=== PATIENT | male | born 1945 | race Caucasian/White ===

== ENCOUNTER → 2022-05-30 14:40 | Outpatient (CLI) | payer MEDICARE, OTHER, SELFPAY ==
[2022-06-01 17:02] LABS: Fecal Immunochemical Test Negative (Negative)
== END ==
PROVIDERS: PCP Family Medicine; Referring Provider Family Medicine; Visit Provider Family Medicine
DX: Z12.11 Encounter for screening for malignant neoplasm of colon (principal)
CPT/HCPCS: 82274

== ENCOUNTER → 2022-10-25 08:46 | Outpatient (CLI) | payer MEDICARE, OTHER, SELFPAY ==
[2022-10-25 09:49] LABS: Alanine Aminotransferase 26 IU/L (<50); Albumin 4.2 g/dL (3.5-5.0); Albumin Globulin Ratio 1.4 (1.0-2.8); Alkaline Phosphatase 63 U/L (38-126); Aspartate Aminotransferase 39 IU/L (17-59); BUN Creatinine Ratio 17.9 (6-22); Bilirubin Total 0.5 mg/dL (0.2-1.3); Blood Urea Nitrogen 15 mg/dL (9-20); Calcium 9.5 mg/dL (8.4-10.2); Carbon Dioxide 33 mmol/L (22-32); Chloride 101 mmol/L (98-107); Cholesterol 202 mg/dL (140-199); Estimated Glomerular Filt Rate > 60 mL/min (>60); Glucose 112 mg/dL (80-110); HDL Cholesterol 63 mg/dL (40-60); HEMOLYSIS < 15 (0-50); LDL Cholesterol Calculated 121 mg/dL (<100); Potassium 4.9 mmol/L (3.4-5.1); Sodium 137 mmol/L (137-145); Total Protein 7.2 g/dL (6.3-8.2); Triglycerides 90 mg/dL (35-150)
[2022-10-25 10:22] LABS: TSH w/ Reflex to FT4 3.78 uIU/mL (0.47-4.68)
== END ==
PROVIDERS: PCP Family Medicine; Referring Provider Family Medicine; Visit Provider Family Medicine
DX: E03.9 Hypothyroidism, unspecified (principal); G47.00 Insomnia, unspecified; Z00.00 Encounter for general adult medical examination without abnormal findings
CPT/HCPCS: 36415; 80053; 80061; 84443

== ENCOUNTER 2023-01-05 19:44 | Emergency (ER) | payer MEDICARE, OTHER, SELFPAY ==
[2023-01-05 19:48] VITALS: BP 156/67; PULSE 51; RESP 18; TEMP 36.5; O2SAT 100; BMI 21.4
--- NOTE | 2023-01-05 19:53 | DI.RAD.S_ITS ---
PROCEDURE: XR KNEE RT 3V INDICATIONS: injury TECHNIQUE: 3 views of the knee were acquired. COMPARISON: None. FINDINGS: Bones: Mildly displaced, comminuted fracture line the proximal fibular shaft. Three-vessel coronary calcifications. Tricompartmental joint space narrowing with osteophytosis. Soft tissues: Moderate joint effusion. No suspicious soft tissue calcifications. Chondrocalcinosis. IMPRESSION: Mildly displaced fracture of the proximal fibula shaft. Moderate knee joint effusion. Chondrocalcinosis, which can be seen in the setting of CPPD, aging, and parathyroid disorders. Dictated by: Aris Sanderson M.D. on 01/05/2023 at 21:48 Approved by: Aris Sanderson M.D. on 01/05/2023 at 21:49
--- NOTE | 2023-01-05 23:17 | DI.RAD.S_ITS ---
PROCEDURE: XR TIBIA FUBULA RT 2V INDICATIONS: fibular fx on knee xray TECHNIQUE: 2 views of the tibia and fibula were acquired. COMPARISON: None. FINDINGS: Bones: Minimally displaced fracture of the proximal fibula shaft. Soft tissues: No suspicious soft tissue calcifications or masses. IMPRESSION: Minimally displaced fracture of the proximal tibia shaft. No additional fractures present. Dictated by: Aris Sanderson M.D. on 01/05/2023 at 23:43 Approved by: Aris Sanderson M.D. on 01/05/2023 at 23:44
[2023-01-05 23:28] VITALS: BP 187/69; PULSE 61; RESP 18; O2SAT 99
--- NOTE | 2023-01-06 00:24 | ED.LOWEXIN ---
HPI - Extremity Injury (Lower) General Chief Complaint: Extremity Injury, Lower Stated Complaint: Knee pain Time Seen by Provider: 01/05/23 23:17 Source: patient Mode of arrival: Ambulatory Limitations: no limitations History of Present Illness HPI Narrative: 77-year-old male on levothyroxine is his only daily medication. Patient was hiking it [employer] today. He states he took a tumbling fall over some rocks and hurt his right lower extremity. He has pain over the fibula. Patient denies any other symptoms. He denies any head injury, no neck pain, no numbness tingling or weakness. Patient states no anticoagulation or aspirin. He states he was able to walk about 100 m on it afterwards. He has been able to weightbear but is little bit uncomfortable. Related Data Home Medications Medication Instructions Recorded Confirmed iron-vitamins PO 05/26/22 10/25/22 Previous Rx's Medication Instructions Recorded trazodone 50 mg tablet 50 - 100 mg PO DAILY #180 tabs 10/25/22 levothyroxine 112 mcg tablet 112 mcg PO DAILY #90 tabs 01/01/23 Allergies Allergy/AdvReac Type Severity Reaction Status Date / Time No Known Allergies Allergy Uncoded 10/25/22 08:12 Review of Systems Review of Systems ROS Unobtainable: All systems reviewed & are unremarkable except as noted in HPI and below Patient History Medical History Acne (~1959) BPH (benign prostatic hyperplasia) Chicken pox (~1954) Encounter for initial annual wellness visit (AWV) in Medicare patient Foot pain (~2019) Hypothyroidism Insomnia Measles (~1954) Mumps (~1954) Rotator cuff disorder Small bowel obstruction Surgical History Anesthesia Diverticulitis (~1987) History of repair of rotator cuff (~2009) Family History Father History of heart disease Mother History of heart disease Social History Smoking Status: Former smoker Smoking Status: Former smoker Exam Narrative Exam Narrative: GENERAL: Alert and oriented x three, male in no acute distress. HEENT: Head normocephalic, atraumatic, EOMI, pupils reactive, face symmetric, moist mucous membranes NECK: Supple, full range of motion CARDIOVASCULAR: Regular rate and rhythm without murmurs, rubs or gallops. RESPIRATORY: Breath sounds equal bilaterally, no wheezes rales or rhonchi. ABDOMEN: Soft, nontender. Normoactive bowel sounds all 4 quadrants. No guarding or rebound, rigidity, no mass : No CVA tenderness EXTREMITIES: Normal range of motion, no clubbing or edema. Neurovascularly intact. Patient has tenderness over the proximal fibula, no deformity. 2+ dorsalis pedis. Full range of motion lower extremity with no other bony tenderness. No ecchymosis, bruising or edema. Normal sensation throughout. NEUROLOGICAL: Cranial nerves II through XII grossly intact. Moving all extremities SKIN: Warm, dry, no petechiae, no rashes or lesions. Initial Vital Signs Initial Vital Signs: Vital Signs Temperature 97.7 F 01/05/23 19:48 Pulse Rate 51 L 01/05/23 19:48 Respiratory Rate 18 01/05/23 19:48 Blood Pressure 156/67 H 01/05/23 19:48 Pulse Oximetry 100 01/05/23 19:48 Oxygen Delivery Method Room Air 01/05/23 19:48 Course Orders Ordered: ED Orders 01/05/23 19:53 XR knee RT 3V Stat 01/05/23 23:17 XR tibia fibula RT 2V Stat Vital Signs Vital signs: Vital Signs - 8 hr 01/05/23 23:28 01/06/23 00:40 Pulse Rate 61 55 L Respiratory Rate 18 18 Blood Pressure 187/69 H 147/70 H Pulse Oximetry 99 100 Oxygen Delivery Method Room Air Room Air MDM - Extremity Injury (Lower) Imaging Data Extremity x-ray #1: Radiologist's Impression: [address] [address] XRay Report Signed Patient: aNbil Rodney MR#: [id number] : 1945 Acct:[id number] Age/Sex: 77 / M Date of Service: 01/05/23 Loc: ED Accession Number: [id number] ?? Procedure: XR knee RT 3V Ordering Provider: Amanda Borrego D.O. PROCEDURE:? XR KNEE RT 3V ? INDICATIONS:? injury ? TECHNIQUE:? 3 views of the knee were acquired.? ? COMPARISON:? None. ? FINDINGS:? ? Bones:? Mildly displaced, comminuted fracture line the proximal fibular shaft.? Three-vessel coronary calcifications.? Tricompartmental joint space narrowing with osteophytosis. ? Soft tissues:? Moderate joint effusion.? No suspicious soft tissue calcifications.? Chondrocalcinosis. ? ? IMPRESSION:? Mildly displaced fracture of the proximal fibula shaft. ? Moderate knee joint effusion. ? ? Chondrocalcinosis, which can be seen in the setting of CPPD, aging, and parathyroid disorders. ? ? Dictated by: Aris Sanderson M.D. on 01/05/2023 at 21:48 ? ? Approved by: Aris Sanderson M.D. on 01/05/2023 at 21:49?? Extremity x-ray #2: Radiologist's Impression: Close Tibia/Fibula X-Ray (Signed) Aris Sanderson - 01/05/23 Knee X-Ray (Signed) Aris Sanderson - 01/05/23 [place] [address] XRay Report Signed Patient: Nabil Rodney MR#: [id number] : 1945 Acct:[id number] Age/Sex: 77 / M Date of Service: 01/05/23 Loc: ED Accession Number: [id number] ?? Procedure: XR tibia fibula RT 2V Ordering Provider: Amanda Borrego D.O. PROCEDURE:? XR TIBIA FUBULA RT 2V ? INDICATIONS:? fibular fx on knee xray ? TECHNIQUE:? 2 views of the tibia and fibula were acquired.? ? COMPARISON:? None. ? FINDINGS:? ? Bones:? Minimally displaced fracture of the proximal fibula shaft. ? Soft tissues:? No suspicious soft tissue calcifications or masses.? ? IMPRESSION:? Minimally displaced fracture of the proximal tibia shaft.? No additional fractures present. ? ? Dictated by: Aris Sanderson M.D. on 01/05/2023 at 23:43 ? ? Approved by: Aris Sanderson M.D. on 01/05/2023 at 23:44?? MDM Narrative Medical decision making narrative: 77-year-old male with tenderness over the proximal fibula with fibular fracture, fairly well aligned but comminuted. Discussed with Dr. More with Orthopedic surgery, patient has been able to weightbear on it so does not feel he requires splint but do crutches weightbearing as tolerated with follow-up this coming week with Orthopedic surgery. Discussed all of patient's findings and recommendations. Patient defers anything stronger for pain than Tylenol. Discussed return precautions. Discharge Plan Departure Patient Disposition: Home Clinical Impression: Closed fibular fracture Instructions: Fibula Shaft Fracture Activity Restrictions/Additional Instructions: Follow-up with orthopedic surgery, call Sunday to set up an appointment. You may toe-touch weightbear as tolerated. I spoke with Orthopedic surgery you do not have to wear a splint but I would recommend using crutches. You may take Tylenol up to a 1000 mg every 6 hours as needed for pain. Elevated affected body part to decrease swelling. OK to use ice pack on the affected body part. Use for 15-20 minutes each time, for 5-6x per day. If you develop worsening pain, numbness, tingling, discoloration of the affected body part, either see your doctor for an urgent re-assessment, or return to the Emergency Department. Return to the Emergency Department for any new or worsening symptoms. Prescriptions: No Action levothyroxine 112 mcg tablet 112 mcg PO DAILY Qty: 90 0RF trazodone 50 mg tablet 50 - 100 mg PO DAILY Qty: 180 3RF iron-vitamins PO Referrals: Teodora Dumont MD [Physician] - Maximus Sibley DO [Primary Care Provider] - Stand Alone Forms: Patient Portal/API
[2023-01-06 00:40] VITALS: BP 147/70; PULSE 55; RESP 18; O2SAT 100
== END 2023-01-06 00:36 | disposition home or self-care (01) ==
PROVIDERS: Emergency Provider Emergency Medicine; PCP Family Medicine
DX: S82.491A Other fracture of shaft of right fibula, initial encounter for closed fracture (principal); W18.30XA Fall on same level, unspecified, initial encounter
CPT/HCPCS: 73562; 73590; 99283

== ENCOUNTER → 2023-10-31 15:24 | Outpatient (CLI) | payer MEDICARE, OTHER, SELFPAY ==
--- NOTE | 2023-10-31 15:25 | DI.RAD.S_ITS ---
PROCEDURE: XR KNEE LT 3V INDICATIONS: left posterior knee pain worse w/weight bear TECHNIQUE: 3 views of the knee were acquired. COMPARISON: [facility], CR, XR KNEE RT 3V, 01/05/2023, 20:06. FINDINGS: Bones: No fractures or dislocations. No suspicious bony lesions. Tricompartmental joint space narrowing with associated osteophytosis. Soft tissues: Small joint effusion. No suspicious soft tissue calcifications. IMPRESSION: No acute bony abnormality or significant effusion. [id number] tricompartmental osteoarthritis. Kellgren-Dirk Grade 2. Dictated by: Aris Sanderson M.D. on 10/31/2023 at 16:54 Approved by: Aris Sanderson M.D. on 10/31/2023 at 16:55
== END ==
PROVIDERS: PCP Family Medicine; Referring Provider Student in an Organized Health Care Education/Training Program; Visit Provider Student in an Organized Health Care Education/Training Program
DX: S86.912A Strain of unspecified muscle(s) and tendon(s) at lower leg level, left leg, initial encounter (principal); M17.12 Unilateral primary osteoarthritis, left knee; X58.XXXA Exposure to other specified factors, initial encounter
CPT/HCPCS: 73562

== ENCOUNTER → 2023-12-06 07:07 | Outpatient (CLI) | payer MEDICARE, OTHER, SELFPAY ==
--- NOTE | 2023-12-06 | DI.MRI.S_ITS ---
PROCEDURE: MR KNEE LT WO CON INDICATIONS: INTERNAL DERANGEMENT OF LEFT KNEE TECHNIQUE: Noncontrast sagittal PD fast spin echo and T2 fast spin echo with fat saturation, sagittal 3-D FLASH with fat saturation; coronal T1 spin echo and PD fast spin echo with fat saturation, and axial PD fast spin echo with fat saturation through the knee. COMPARISON: [facility], CR, XR KNEE LT 3V, 10/31/2023, 15:30. FINDINGS: Image quality: Excellent. Bones: There is a small subcentimeter intraosseous ganglion cyst at the posterior-medial tibial plateau (7/15). A small amount of marrow edema is present at the midportion of the lateral femoral condyle (10/20). Additional foci of subchondral marrow edema are present at the patellar facets (5/10). Otherwise, the marrow signal is within normal limits. There is no acute fracture or dislocation. Joints: There is a small knee joint effusion. There is mild knee osteoarthritis, predominantly in the lateral and patellofemoral compartments. Rosen cyst: No significant Rosen's cyst. Menisci: There is a complex tear with intermediate signal of the posterior root attachment of the lateral meniscus extending to the posterior horn (02/25). There is minimal meniscal body extrusion into lateral gutter. The medial meniscus in its posterior root attachment are intact. Cruciate ligaments: The anterior posterior cruciate ligaments are intact Collateral ligaments: There is mild thickening of the medial and lateral collateral ligament complexes at the femoral attachment sites. There is no focal tear. Popliteus muscle/tendon: Small subcentimeter ganglion cysts are present at the myotendinous junction of the popliteus muscle belly (02/27-). Otherwise, the muscle and tendon are within normal limits. Extensor mechanism: The quadriceps tendon is normal. The patellar tendon is normal. The medial and lateral patellar retinacular attachments are within normal limits. Articular cartilage: Partial thickness chondral fissuring is present at the patellofemoral compartment, predominantly along the medial patellar facet and trochlea (/-12). Deep, partial-thickness chondral fissuring is present at the posterior weight-bearing lateral tibial plateau (/20). Other: No other acute abnormality. IMPRESSION: 1. Complex tear and degeneration of the posterior root attachment of the lateral meniscus. Minimal meniscal body extrusion. 2. Mild lateral and patellofemoral osteoarthritis with small joint effusion, associated articular cartilage defects and reactive marrow edema. 3. Chronic low-grade sprains of the medial and lateral collateral ligament complexes. Dictated by: Graham Strauss M.D. on 12/06/2023 at 12:33 Approved by: Graham Strauss M.D. on 12/06/2023 at 13:09
== END ==
PROVIDERS: PCP Family Medicine; Referring Provider Orthopaedic Surgery Adult Reconstructive Orthopaedic Surgery; Visit Provider Orthopaedic Surgery Adult Reconstructive Orthopaedic Surgery
DX: S83.272A Complex tear of lateral meniscus, current injury, left knee, initial encounter (principal); S83.412A Sprain of medial collateral ligament of left knee, initial encounter; S83.422A Sprain of lateral collateral ligament of left knee, initial encounter; M23.92 Unspecified internal derangement of left knee; M17.12 Unilateral primary osteoarthritis, left knee; M25.462 Effusion, left knee
CPT/HCPCS: 73721